=== PATIENT | female | born 1945 | race Caucasian/White ===

== ENCOUNTER 2024-03-15 07:34 | Outpatient (CLI) | payer MEDICARE, BC, SELFPAY ==
--- OUTSIDE RECORDS SUMMARY | 2024-03-15 07:39 | XMS_ITS | Referral Summary ---
Author Organization [facility] Address [address] [place] [address] Care Team Providers Care Viner Operator Name Role Phone Unavailable Primary Care Provider Unavailabl e Source Comments Patient records contain information from all sites at [facility]. For routine questions regarding patient records, call [phone] during business hours, M-F 8:00 AM - 5:00 PM Central Time. Record requests for emergency care only can be directed to [phone] at any time.[facility] Allergies Active Allergy Reactions Criticality Noted Date Comments Fernando Inhibitors Cough,Other (see comments) Low 12/26/2006 Head aches - severe Aspirin Anaphylaxis,Edema, suggestive of allergic reaction, i.e., lip, tongue, or throat swelling High 12/23/1976 Facial edema Citalopram Other (see comments) Low 03/20/2011 Sensation of something stuck in throat Immunizations Name Administration Dates Next Due DTaP (Infanrix, Tripedia) 11/11/2008 H1N1 All Forms 09/19/2009 HZV (ZOSTAVAX) 11/11/2008 Influenza, Unspecified 10/12/2004 Social History Tobacco Use Types Packs/Day Years Used Date Smoking Tobacco: Never Assessed Nutrition Answer Date Recorded Nutrition: EVOO Fat Source Unknown 06/30 Nutrition: Servings of Fruits/Vegetables per Day Not on file 06/30/2023 Dental Answer Date Recorded Dental: Regular Dentist Unknown 06/30/20 Sex and Gender Information Value Date Recorded Sex Assigned at Not on file Gender Identity Not on file Sexual Orientation Not on file Plan of Treatment Not on file Medical Devices Implanted Type Area Park Interpreter Device Identifier Shelf Expiration Date Model / Serial / Lot Imaging Marker- [id number] Implanted:Qty : 1 on 06/24/2023 Imaging Marker Right: Breast Description:Shape: Wing
--- OUTSIDE RECORDS SUMMARY | 2024-03-15 07:39 | XMS_ITS | Clinical Summary ---
Author Organization [facility] Address [address] [place] [address] Care Team Providers Care Testing Coordinator Name Role Phone Unavailable Primary Care Provider Unavailabl e Source Comments Patient records contain information from all sites at [facility]. For routine questions regarding patient records, call [phone] during business hours, M-F 8:00 AM - 5:00 PM Central Time. Record requests for emergency care only can be directed to [phone] at any time.[facility] Allergies Active Allergy Reactions Criticality Noted Date [...] Orientation Not on file Plan of Treatment Health Maintenance Due Date Last Done Comments Hepatitis C Screening 1945 Depression Screening (Annual PHQ-2) 10/06/2023 Fall Risk Screen (Annual) 10/06/2023 COVID-19 Vaccine (6 - 2022-2 4 season) 2023 07/04/2023, 06/19/2022, 07/29/2021, Additional history exists DTaP,Tdap,and Td Vaccines (3 - Tdap) 09/08/2029 09/08/2019, 11/11/2008, 11/11/2008 Pneumococcal vaccine (65+ years) Completed 10/04/20 14, 09/30/2012 Zoster Vaccines Completed 11/26/2018, 01/2018, 08/24/2018, Additional history exists Influenza Vaccine Completed 07/04/2023, , 06/06/2021, Additional history exists Medical Devices Implanted Type Area Material Man Device Identifier Shelf Expiration Date Model / Serial / Lot Imaging Marker- [id number] Implanted:Qty : 1 on 06/24/2023 Imaging Marker Right: Breast Description:Shape: Wing
--- OUTSIDE RECORDS SUMMARY | 2024-03-15 07:39 | XMS_ITS | Clinical Summary ---
Author Organization [facility] Address [place], [place] [address] Care Team Providers Care Crib Clerk Name Role Phone Hayley Maxwell MD Primary Care Provider [phone] Elida Tompkins MD Unavailable [phone] Allergies Active Allergy Reactions Criticality Noted Date Comments Fernando Inhibitors Cough Low 12/26/2006 Aspirin Angioedema High Citalopram Other - Describe In Comment Field Low 03/20/2011 Sensation of something stuck in throat Medications Medication Sig Dispensed Refills Start Date End Date Status cholecalciferol (VITAMIN D3) 2,000 unit capsule Take 2,000 units by mouth once daily. Active POTASSIUM-99 ORAL Take 1 Tablet by mouth once daily. Active valsartan (DIOVAN) 160 mg tabletIndications: Essential hypertension Take 1 Tablet (160 mg) by mouth once daily. 90 Tablet 3 09/10/2023 Active predniSONE (DELTASONE) 5 mg tabletIndications: PMR (polymyalgia rheumatica) (HC) Take 1 Tablet (5 mg) by mouth once daily with a meal. 0 09/10/2023 Active LORazepam (ATIVAN) 0.5 mg tabIndications:Anx iety Take 1 Tablet (0.5 mg) by mouth every 6 hours if needed for Anxiety. 60 Tablet 09/22/2023 Active medication order composer Magnesium Glycinate, Potassium 99 oral, Vitamin 2000IU-daily, Probiotic, Sporebiotic 02/12/2024 Active polyethylene glycol-electrolyte (GOLYTELY) 236-22.74-6.74 -5.86 gram suspensionIndicati ons:Encounter for screening colonoscopy Drink 2 liters the day before colonoscopy and 2 liters 6 hours before colonoscopy appointment 4000 mL 03/05/2024 Active medication order composerIndication s:Chronic joint pain Low Dose Naltrexone compounded to 3mg: Take 0.5 tablet by mouth daily at bedtime and increase dose as instructed 60 Tablet 09/16/2023 4 Discontinued (Other - add note to specify (E-cancel not sent)) medication order composerIndication s:Chronic joint pain Low Dose Naltrexone compounded to 4.5 mg tablets: Take 1 tablet by mouth daily at bedtime 90 Tablet 1 09/17/2023 4 Discontinued (Other - add note to specify (E-cancel not sent)) rifAXIMin (Xifaxan) 550 mg tabletIndications: Small intestinal bacterial overgrowth (SIBO) Take 1 tablet by mouth three times daily for 14 days 42 Tablet 02/12/2024 4 Discontinued (*Patient states no longer taking) Active Problems Problem Noted Date Diagnosed Date Prediabetes 03/11/2024 Epigastric pain 07/21/2023 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 C-reactive protein 20.7. ACP (advance care planning) 06/05/2020 Overview: Health Care Directive scanned to medical record. See document dated 03/31/2020. Anxiety 02/22/2014 Overview: Working with counselor Osteopenia 11/15/2013 Overview: 02/2019: DXA scan-lowest T-score -1.8, FRAX score low Hypertension Postmenopausal atrophic vaginitis Hyperlipidemia Overview: high HDL HH (hiatus hernia) Resolved Problems Problem Noted Date Diagnosed Date Resolved Date Acute appendicitis 05/17/2023 3 Acute atopic conjunctivitis 12/28/2006 08/22/2015 Displacement of lumbar inter vertebral disc without myelopathy 12/26/2006 Reflux esophagitis 7 Esophageal reflux 08/22/2015 Overview: Upper GI endoscopy negative 12/17/07 Neg H.Pylori Encounters Date Type Department Care Team Description 03/11/2024 10:00 AM CDT Preop Visit [address] [phone] Angel Guzman MD Pre-Op Exam (DOS 03/15/24 colonoscopy) 03/11/2024 Travel 03/04/2024 12:20 PM CDT Orders Only [address] [address] Lab, [facility] 03/04/2024 Travel 02/23/[address] [address] Radha Arevalo NP Prior Authorization (rifAXIMin (Xifaxan) 550 mg tablet APPEAL) 02/23/2024 Telephone [facility] [address] [place] [address] Luis Antonio Hunt MD PHARMACY - [facility]; Questions (returning a call ) 02/23/[address] [address] Hayley Maxwell MD Referral (COLONOSCOPY DIAGNOSTIC [[id number]]) 02/13/2024 Medical Messaging [address] [address] Radha Arevalo NP QUESTION 02/12/2024 10:00 AM CDT Telemedicine [address] [address] Radha Arevalo NP Follow Up; Telehealth (Digestive issues) 02/11/2024 Travel 01/01/2024 2:15 PM CDT Telemedicine [address] [place] [address] Radha Arevalo, BEATRIZ Telehealth; Follow Up 01/01/2024 Travel from Last 3 Months Immunizations Name Administration Dates Next Due COVID-19 vaccine (Moderna 100mcg/0.5mL) PF, MDV 07/29/2021,01/03/2021,12/06/2020 DTaP 11/11/2008 Influenza A (H1N1), Inactivated 09/19/2009 Influenza Virus, Unspecified 06/06/2020,07/19/20 15,10/12/2004 Influenza, High-dose Inactivated 021,06/15/2019,06/05/2018,2016,07/24/2016,07/23/2016 Influenza, High-dose Quadriv alent Inactivated 07/04/2023 Influenza, IIV3 (Age 6-35 mos) 06/23/2020 Influenza, IIV3 (Age >=3 years) 07/01/20 11,07/06/2010,07/20/2007,2005,10/12/2004 Influenza, IIV4 07/19/2015,07/12/2013 Influenza, Inactivated AIIV4 (Age 65+ Years) Preserv Free 06/19/2022 Influenza, Inactivated IIV3 (Age 65+ Years) Preserv Free 06/12/2017 Pneumococcal Poly,23-Valent (Pneumovax) 09/30/2012 Pneumococcal conj 13-Valent (Prevnar 13) 10/04/2014 Td (Age >=7 Years) 09/08/2019 Tdap 11/11/2008 Zoster (Shingrix-RZV, recombinant) 11/26/2018,,08/24/2018 Zoster (Zostavax-ZVL, live) 11/11/2008 Family History Medical History Relation Name Comments Cancer-breast Brother Alcoholism Father COPD Father Alcoholism Mother Rheum arthritis Mother Relation Name Status Comments Brother Alive Father (Age 73) Mother (Age 58) Social History Tobacco Use Types Packs/Day Years Used Date Smoking Tobacco: Never Smokeless Tobacco: Never Tobacco Cessation:Counseling Given: Yes Alcohol Use Standard Drinks/Week Comments No 0 (1 standard drink = 0.6 oz pur e alcohol) PHQ-2 Answer Date Recorded PHQ-2 TOTAL SCORE 0 09/10/2023 Social Connections Answer Date Recorded Frequency of Communication with Friends and Fami ly 0 03/21/2023 Financial Resource Strain Answer Date R ecorded Difficulty of Paying Living Expenses 3 03/21/2023 Difficulty of Paying Living Expenses Not on file 03/21/2023 Food Insecurity Answer Date Recorded Worried About Running Out of Food in the Last Ye ar 1 03/21/2023 Transportation Needs Answer Date Record ed Lack of Transportation (Medical) 1 03/21/2023 Housing Stability Answer Date Recorded Unable to Pay for Housing in the Last Year 1 03/21/2023 Sex and Gender Information Value Date Recorded Sex Assigned at Not on file Gender Identity Not on file Sexual Orientation Not on file Obstetrics History Para Term AB IAB SAB Ectopic Multiple Livin g Live Births 3 3 2 Date Outcome GA Total Labor Labor/2nd/3rd Weight Sex Type Anes PTL Cyndi A1 A5 Name Clin Para Para Para Last Filed Vital Signs Vital Sign Reading Time Taken Comments Blood Pressure 132/90 03/11/2024 10:08 AM CDT Pulse 75 03/11/2024 10:08 AM CDT Temperature 36.3 ??C (97.4 ??F) 08/07/2023 10:59 AM C DT Respiratory Rate 16 08/07/2023 10:59 AM CDT Oxygen Saturation 96% 03/11/2024 10:08 AM CDT Inhaled Oxygen Concentration - - Weight 82.1 kg (181 lb) 03/11/2024 10:08 AM CDT Height 160 cm (5' 3) 09/10/2023 11:36 AM TUMOR REGISTRAR Body Mass Index 32.06 09/10/2023 11:36 AM TUMOR REGISTRAR Plan of Treatment Upcoming Encounters Date Type Department Care Team (Late st Contact Info) Description 03/15/2024 7:45 AM CDT Office Visit [facility] at [facility] [address] [place] [phone] Luis Antonio Hunt MD [address] [place] [address] 03/23/2024 8:30 AM CDT Telemedicine [facility] and [address] [phone] Radha Arevalo, SKI PATROLLER [address] [place] [address] 03/24/2024 8:00 AM CDT Appointment [facility] [address] [place] [address] 03/24/2024 11:30 AM CDT Office Visit [address] [phone] Ciara Hutchins, DO [address] [place] [address] 04/07/2024 8:00 AM CDT Office Visit [address] [phone] Hayley Maxwell MD [address] [place] [address] 04/21/2024 8:10 AM CDT Office Visit [address] [phone] Ciara Hutchins, DO [address] [place] [address] 05/11/2024 3:00 PM CDT Telemedicine [facility] and [facility] [address] [place] [address] Radha Arevalo, BEATRIZ [address] [place] [address] 06/28/2024 10:40 AM CDT Appointment [facility] [address] [place] [address] Health Maintenance Due Date Last Done Comments COVID-19 vaccine series (2022-24 season) 2023 07/04/2023, 06/19/2022, 07/29/2021, Additional history exists Influenza for age 65+ 06/06/2024 07/04/2023 , 06/19/2022, 06/06/2021, Additional history exists BMI (ht and wt on same day) for age 18+ 09/10/2024 09/10/2023, 08/07/2023, 07/04/2023, Additional history exists Depression screening for age 12+ 09/10/2024 09/10/2023, 04/01/2023, 03/07/2023, Additional history exists Medicare Wellness for age 65+ 09/10/2024, 09/04/2022, 09/08/2019, Additional history exists Tetanus booster 09/08/2029 09/08/2019, 11/11/2008 Tdap Completed 11/11/2008 Pneumococcal series for age 65+ Completed 4, 09/30/2012 Zoster (shingles) series for age 50+ Completed 11/26/2018, 09/08/2018, 08/24/2018, Additional history exists DEXA/DXA scan for age 65+ Completed 2018, 03/26/2011, 07/01/2007 Hepatitis C screening for ag e 18-79 Completed 09/10/2019 Procedures Procedure Name Priority Date/Time Associated Diagnosis Comments HEMOGLOBIN A1C SCREENING Add On 03/11/2024 10:31 AM CDT Elevated glucose CBC WITH AUTO DIFFERENTIAL Routine 03/11/2024 10:31 AM CDT Hypertension LIPID PANEL W REFLEX MEASURED LDL Routine 03/11/2024 10:31 AM CDT Hyperlipidemia, unspecified hyperlipidemia type LIPASE Routine 03/11/2024 10:31 AM CDT Hypertension COMP METABOLIC PANEL Routine 03/11/2024 10:31 AM CDT Hypertension CBC WITH AUTO DIFFERENTIAL Routine 03/11/2024 10:31 AM CDT Hypertension STOOL PATHOGEN MULTIPLEX PCR PANEL Routine 03/04/2024 10:38 AM CDT Chronic diarrhea ANTI HCV Routine 09/10/2019 7:51 AM TUMOR REGISTRAR Need for hepatitis C screening test XR DXA BONE DENSITY 2 SITES AXIAL Routine 02/08/2019 1:45 PM CDT Osteopenia, unspecified location from Last 3 Months or Most Recently Relevant to Health Maintenance Results * (ABNORMAL) CBC WITH AUTO DIFFERENTIAL (03/11/2024 10:31 AM CDT) Pathologist [facility] WHITE BLOOD COUNT 9.2 4.5 - 11.0 thou/cu mm 03/11/2024 11:00 AM [facility] RED BLOOD COUNT 5.33(H) 4.00 - 5.20 mil/cu mm 03/11/2024 11:00 AM [facility] HEMOGLOBIN 14.8 12.0 - 16.0 g/dL 03/11/2024 11:00 AM [facility] HEMATOCRIT 46.1 33.0 - 51.0 % 03/11/2024 11:00 AM [facility] MCV 87 80 - 100 fL 03/11/2024 11:00 AM [facility] MCH 27.8 26.0 - 34.0 pg 03/11/2024 11:00 AM [facility] MCHC 32.1 32.0 - 36.0 g/dL 03/11/2024 11:00 AM [facility] RDW 15.5 11.5 - 15.5 % 03/11/2024 11:00 AM [facility] PLATELET COUNT 328 140 - 440 thou/cu mm 03/11/2024 11:00 AM [facility] MPV 10.1 6.5 - 11.0 fL 03/11/2024 11:00 AM [facility] % NEUT 70.0 % 03/11/2024 11:00 AM [facility] % LYMPH 21.3 % 03/11/2024 11:00 AM [facility] % MONO 7.6 % 03/11/2024 11:00 AM CDT [facility] % EOS 0.8 % 03/11/2024 11:00 AM CDT [facility] % BASO 0.3 % 03/11/2024 11:00 AM CDT [facility] ABSOLUTE NEUTROPHILS 6.5 1.7 - 7.0 thou/cu mm 03/11/2024 11:00 AM CDT [facility] ABSOLUTE LYMPHOCYTES 2.0 0.9 - 2.9 thou/cu mm 03/11/2024 11:00 AM CDT [facility] ABSOLUTE MONOCYTES 0.7 <0.9 thou/cu mm 03/11/2024 11:00 AM CDT [facility] ABSOLUTE EOSINOPHILS 0.1 <0.5 thou/cu mm 03/11/2024 11:00 AM CDT [facility] ABSOLUTE BASOPHILS 0.0 <0.3 thou/cu mm 03/11/2024 11:00 AM CDT [facility] Blood BLOOD SPECIMEN / Unknown Venipuncture / Unknown 03/11/2024 10:31 AM CDT 03/11/2024 10:31 AM CDT Angel Guzman MD HEMATOLOGY Performing Organization Address City/State/[facility] Co de Phone Number [facility] [address] [place] [address] * HEMOGLOBIN A1C SCREENING (03/11/2024 10:31 AM CDT) HEMOGLOBIN A1C SCREENING 6.0 <=6.4 % 03/11/2024 11:35 AM CDT [facility] Blood BLOOD SPECIMEN / Unknown Venipuncture / Unknown 03/11/2024 10:31 AM CDT 03/11/2024 10:31 AM CDT Narrative [facility] - 03/11/2024 11:35 AM CDT ? (<5.7%) ?Normal ? (5.7% to 6.4%) ? Indicates prediabetes ? (>=6.5%) ? Confirms diabetes Falsely low levels may be seen with: Recent Transfusion, Recent Significant Blood Loss, Hemolytic Diseases, or Falsely elevated levels may be seen with: Untreated Anemias, Splenectomy Angel Guzman MD CHEMISTRY [facility] [address] [place] [address] * (ABNORMAL) LIPID PANEL W REFLEX MEASURED LDL (03/11/2024 10:31 AM CDT) CHOLESTEROL,TOTAL 280(H) 100 - 199 mg/dL 03/11/2024 11:21 AM [facility] Comment: Cholesterol, Total Reference Ranges Desirable <200 mg/dL Borderline 200-239 mg/dL High >=240 mg/dL TRIGLYCERIDES 140 <150 mg/dL 03/11/2024 11:21 AM [facility] HDL CHOLESTEROL 75 >40 mg/dL 11:21 AM [facility] NON-HDL CHOLESTEROL 205(H) <145 mg/dl 03/11/2024 11:21 AM [facility] CHOL/HDL RATIO 3.73 <4.50 03/11/2024 11:21 AM [facility] LDL CHOLESTEROL 177(H) <=130 mg/dL 03/11/2024 11:21 AM [facility] VLDL CHOLESTEROL 28 <=30 mg/dL 03/11/2024 11:21 AM [facility] PROVIDER ORDERED STATUS RANDOM 03/11/2024 11:21 AM [facility] Blood BLOOD SPECIMEN / Unknown Venipuncture / Unknown 03/11/2024 10:31 AM CDT 03/11/2024 10:31 AM T Angel Guzman MD CHEMISTRY [facility] [address] [place] [address] * (ABNORMAL) LIPASE (03/11/2024 10:31 AM CDT) LIPASE 67.6(H) 13.0 - 60.0 IU/L 03/11/2024 11:21 AM [facility] Blood BLOOD SPECIMEN / Unknown Venipuncture / Unknown 03/11/2024 10:31 AM CDT 03/11/2024 10:31 AM CDT Angel Guzman MD CHEMISTRY [facility] [address] [place] [address] * (ABNORMAL) COMP METABOLIC PANEL (03/11/2024 10:31 AM CDT) SODIUM 142 136 - 145 mmol/L 03/11/2024 11:21 AM [facility] POTASSIUM 4.2 3.5 - 5.1 mmol/L 03/11/2024 11:21 AM [facility] CHLORIDE 104 98 - 107 mmol/L 03/11/2024 11:21 AM [facility] CO2,TOTAL 27 22 - 29 mmol/L 03/11/2024 11:21 AM [facility] ANION GAP 11 5 - 18 03/11/2024 11:21 AM [facility] GLUCOSE 112(H) 70 - 99 mg/dL 03/11/2024 11:21 AM [facility] CALCIUM 10.0 8.8 - 10.2 mg/dL 03/11/2024 11:21 AM [facility] BUN 17 8 - 23 mg/dL 03/11/2024 11:21 AM [facility] CREATININE 0.78 0.50 - 0.90 mg/dL 03/11/2024 11:21 AM [facility] BUN/CREAT RATIO 22(H) 10 - 20 11:21 AM [facility] eGFR 78(L) >90 mL/min/1.7 3m2 03/11/2024 11:21 AM T [facility] Comment:As of 2021, eG FR is calculated by the CKD-EPI creatinine equation without race adjustment. ??eGFR can be influenced by muscle mass, exercise, and diet. ??The reported eGFR is an estimation only and is only applicable if the renal function is stable. ALBUMIN 4.6 4.0 - 4.9 g/dL 03/11/2024 11:21 AM T [facility] PROTEIN,TOTAL 7.4 6.0 - 8.0 g/dL 03/11/2024 11:21 AM T [facility] BILIRUBIN,TOTAL 0.9 0.0 - 1.2 mg/dL 03/11/2024 11:21 AM T [facility] ALK PHOSPHATASE 75 35 - 104 IU/L 03/11/2024 11:21 AM [facility] ALT (SGPT) 22 10 - 35 IU/L 03/11/2024 11:21 AM T [facility] AST (SGOT) 29 10 - 35 IU/L 03/11/2024 11:21 AM [facility] Blood BLOOD SPECIMEN / Unknown Venipuncture / Unknown 03/11/2024 10:31 AM CDT 03/11/2024 10:31 AM CDT Angel Guzman MD CHEMISTRY [facility] [address] [place] [address] * STOOL PATHOGEN MULTIPLEX PCR PANEL (03/04/2024 10:38 AM CDT) Campylobacter NOT Detected NOT Detected 03/05/2024 10:55 AM CDT [facility] Salmonella NOT Detected NOT Detected 03/05/2024 10:55 AM CDT [facility] Shigella NOT Detected NOT Detected 03/05/2024 10:55 AM CDT [facility] Vibrio NOT Detected NOT Detected 03/05/2024 10:55 AM CDT [facility] Yersinia Enterocolitica NOT Detected NOT Detected 03/05/2024 10:55 AM CDT [facility] Shiga Toxin 1 NOT Detected NOT Detected 03/05/2024 10:55 AM CDT [facility] Shiga Toxin 2 NOT Detected NOT Detected 03/05/2024 10:55 AM CDT [facility] Norovirus NOT Detected NOT Detected 03/05/2024 10:55 AM CDT [facility] Rotavirus NOT Detected NOT Detected 03/05/2024 10:55 AM CDT [facility] Stool STOOL SPECIMEN / Unknown Non-Blood / Unknown 03/04/2024 10:38 AM CDT 03/04/2024 11:45 AM CDT Narrative [facility] - 03/05/2024 10:55 AM CDT This test is a Culture Independent Diagnostic Test (CIDT) therefore isolates are not available for susceptibility testing. ??Antibiotic treatment is often contraindicated and may be detrimental in cases of enteric infections, thus routine susceptibility testing is not recommended. Radha Arevalo NP MICROBIOLOGY [facility] [address] [place] [address], [place] * ANTI HCV (09/10/2019 7:51 AM TUMOR REGISTRAR) HEPATITIS C ANTIBODY Non-React taylor Non-React taylor 09/10/2019 5:38 PM TUMOR REGISTRAR [facility] Comment:Antibodies to HCV no t detected; does not exclude the possibility of exposure to HCV. Blood BLOOD SPECIMEN / Unknown Venipuncture / Unknown 09/10/2019 7:51 AM TUMOR REGISTRAR 09/10/2019 7:53 AM TUMOR REGISTRAR Hayley Maxwell MD SEND OUTS [facility] [address] [place] [address], [place] * (ABNORMAL) XR DXA BONE DENSITY 2 SITES AXIAL (02/08/2019 1:45 PM CDT) Anatomical Region Laterality Modality Spine, HIPS, HIPL, HIPR Bone Den sitometry Narrative 02/10/2019 3:31 PM CDT Please see scanned document for results of this study. 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 Healthcare Directive 03/31/2020 020 Treatment Guidelines 06/17/2014 5:23 PM GA D-7 ANXIETY SCALE * Full Code (Latest Code Status on File) Date Activated Date Inactivated Comments 07/28/2023 1:40 PM 07/28/2023 8:12 PM Question Answer Comments Code Status Discussion: Reviewed Preferences * Full Code Date Activated Date Inactivated Comments 03/11/2023 1:45 PM 03/11/2023 5:41 PM Question Answer Comments Code Status Discussion: Discussed Care Teams Crib Clerk Relationship Specialty Start Date End Date Hayley Maxwell MD [address] [place] [address] PCP - General 01/09/05 Elida Tompkins MD [facility] [address] [place] [address]. [address] [place] [id number] Dermatology 08/07/16
--- OUTSIDE RECORDS SUMMARY | 2024-03-15 07:39 | XMS_ITS ---
Author Organization [facility] Address [address] [place] [address] Care Team Providers Care Manufacturer Name Role Phone Unavailable Unavailable Unavailable Surgery Details Not on file Complications Check Surgery Details section. Procedure Estimated Blood Loss Check Surgery Details section. Procedure Findings Check Surgery Details section. Procedure Specimens Taken Check Surgery Details section.
--- OUTSIDE RECORDS SUMMARY | 2024-03-15 07:39 | XMS_ITS | Clinical Summary ---
Author Organization [facility], [facility] Address [address] [address] Care Team Providers Care Lens Edge Grinder Machine Name Role Phone Pcp, Pt Declines MD Primary Care Provider [phone] Source Comments You are receiving this document as you are listed as the primary care provider,follow-up provider, or the patient has been referred to you for consultation.This is in compliance with the Medicare and[facility] EHR Incentive Program,which states Providers who transition their patient to another setting of careor provider of care or refers their patient to another provider of care shouldprovide summary care record for each transition of care or referral. Circle Allergies Active Allergy Reactions Criticality Noted Date Comments Aspirin Anaphylaxis High 05/04/2020 Medications Medication Sig Dispensed Refills Start Date End Date Status irbesartan (AVAPRO) 150 MG tablet Take 150 mg by mouth daily. 04/13/2020 Active LORazepam (ATIVAN) 0.5 MG tablet Take 0.5 mg by mouth every 6 hours as needed. 04/13/2020 Active Social History Tobacco Use Types Packs/Day Years Used Date Smoking Tobacco: Never Assessed Sex and Gender Information Value Date Recorded Sex Assigned at Not on file Gender Identity Not on file Sexual Orientation Not on file Last Filed Vital Signs Vital Sign Reading Time Taken Comments Blood Pressure - - Pulse - - Temperature - - Respiratory Rate - - Oxygen Saturation - - Inhaled Oxygen Concentration - - Weight 70.3 kg (155 lb) 05/04/2020 3:53 PM CDT p t reported Height 160 cm (5' 3) 05/04/2020 3:53 PM CDT pt reported Body Mass Index 27.46 05/04/2020 3:53 PM CDT Plan of Treatment Health Maintenance Due Date Last Done Comments Hep C Screening (Preventive Services) 1945 Medicare Annual Wellness Visit 1945 Dexa 12/31/2011 COVID-19 Vaccine ( season) 2023 01/03/2021, 12/06/2020 Influenza (Season Ended) 2024 020, 06/06/2020, 06/15/2019, Additional history exists DTaP/Tdap/Td (3 - Tdap) 09/08/2029 09/08/2019, 11/11 Pneumococcal 65+ Yrs Completed 10/04/2014, 09/30/20 12 Zoster/Shingles Completed 11/26/2018, 01/2018, 08/17/2018, Additional history exists HepA Aged Out No longer eligi ble based on patient's age to complete this topic HepB Aged Out No longer eligi ble based on patient's age to complete this topic Hib Aged Out No longer eligi ble based on patient's age to complete this topic IPV (Polio) Aged Out No longer eligi ble based on patient's age to complete this topic MCV4 Aged Out No longer eligi ble based on patient's age to complete this topic Care Teams Lens Edge Grinder Machine Relationship Specialty Start Date End Date Pcp, Pt MD [place], [place] [id number] PCP - General 05/04/20
--- NOTE | 2024-03-15 09:30 | P.ANES_ITS ---
Anesthesia Charges Start Date/Time Anesthesia Start Date: 03/15/24 Anesthesia Start Time: 08:57 Stop Date/Time Anesthesia Stop Date: 03/15/24 Anesthesia Stop Time: 09:27 Summary Extremes of Age - Over 70 or under 1: SHORE HAND DREDGE OR BARGE
--- NOTE | 2024-03-15 10:04 | W.ANESCHARGE ---
Anesthesia Charges Start Date/Time Anesthesia Start Date: 03/15/24 Anesthesia Start Time: 08:57 Stop Date/Time Anesthesia Stop Date: 03/15/24 Anesthesia Stop Time: 09:27 Summary Extremes of Age - Over 70 or under 1: MDA
== END 2024-03-15 07:35 | disposition home or self-care (01) ==
PROVIDERS: PCP Internal Medicine; Visit Provider Internal Medicine Gastroenterology
DX: Z12.11 Encounter for screening for malignant neoplasm of colon (principal); Q43.8 Other specified congenital malformations of intestine
CPT/HCPCS: 00811; 45380; 88305; 99100; J2704

== ENCOUNTER 2025-08-25 20:21 | Emergency (ER) | payer MEDICARE, BC, SELFPAY ==
--- OUTSIDE RECORDS SUMMARY | 2024-03-03 05:21 | XMS_ITS | Continuity of Care Document ---
Author Organization [facility] Address [address] [address] [place] [address] Phone Care Team Providers Care Expedition Supervisor Name Role Phone Kris Hogan MD Unavailable Unavailabl e Allergies, Adverse Reactions, Alerts Substance Reaction Status Criticality SANDRA Inhibitors Active No Informatio n aspirin Angioedema Active No Information WARNIN allergy(ies) could not be collected because the type is not supported. Please contact the source practice for further details. Medications Medication Instructions Dosage Effective Dates (start - stop) Status Comments potassium chloride ER 10 mEq tablet,extended release take 1 tablet by oral route every day with food 10 MEQ - Active pantoprazole 40 mg tablet,delayed release take 1 tablet by oral route every day take 1 tab 30 mins prior to breakfast and dinner 40 MG - Active oxymetazoline 0.05 % nasal spray spray 2 spray by intranasal route 2 times every day in each nostril in the morning and evening as needed 2.00 spray - Active prednisone 1 mg tablet take 3 tablet by oral route every day 3 MG - Active valsartan 160 mg tablet take 1 tablet by oral route every day 160 MG - Active promethazine 25 mg tablet take 0.5 tablet by oral route every 6 hours as needed - Active Compazine 10 mg tablet take 1 tablet by oral route 4 times every day as needed 10 MG - Active ondansetron [address] 1 tablet by translingual route every [address] on top of the tongue where it will dissolve, then swallow as needed 8 MG - Active LIQUID CALCIUM-VIT D (unknown strength) Not Available - Active buspirone 5 mg tablet take 1 tablet by oral route two times a day - Active isosorbide mononitrate ER 30 mg tablet,extended release 24 hr take 0.5 tablet by oral route every day in the morning 15 MG - Active Potassium (unknown strength) Not Available - Active lorazepam 0.5 mg tablet take 1 tablet by oral route every 6 hours as needed as needed 0.5 MG - Active CULTURELLE (unknown strength) take 1 tablet by oral route every day Not Available - Active Procedures Procedure Date Offic/outpt E&m [facility] Advance Directives Directive Yes / No Effective Date File Name No Information Encounters Encounter Description Practice Location Reason(s) For Visit Diagnoses Date Provider Providers Copied on Encounter [facility], [address] [address], [place], [id number], [place] tel:[phone] [facility] [address] No Information 4 Yamil Ponce. [address] [place] [address], [id number], [place]. tel:[phone] Offic/outpt E&m [facility], [address] [address], [facility] [place], [id number], [place] tel:[phone] [facility] [address] GI Symptoms or Concerns (chief complaint) AnxietyEpigastric abdominal pain 3 Poonam Cortés. [address] [facility] [address], [place], [id number], [place]. tel:[phone] Referring Provider: Referral Self, USE FOR SELF REFERRALS. [facility], [address] [address], [place], [id number], [place] tel:[phone] No Information 3 No Information Referring Provider: Hayley Maxwell MD, [address], [address]. tel:[phone] Family History Family Member Type Diagnosis Age At Onset Mother Problem (finding) Alcoholism Brother Problem (finding) Alcoholism Father Problem (finding) Alcoholism Immunizations Vaccine Date Status Comments influenza, high-dose seasona l, quadrivalent, 0.7mL dose, preservative free administered Note: [facility] bi-direct ional interface ; Source: Other Registry SARS-COV-2 (COVID-19) vaccin e, mRNA, spike protein, LNP, preservative free, segun-sucrose, 30 mcg/0.3 mL dose administered Note: [facility] bi-direct ional interface ; Source: Other Registry SARS-COV-2 (COVID-19) vaccin e, mRNA, spike protein, LNP, bivalent, preservative free, 30 mcg/0.3 mL dose, segun-sucrose formulation administered Note: [facility] bi-direct ional interface ; Source: Other Registry influenza, seasonal vaccine, quadrivalent, adjuvanted, 0.5mL dose, preservative free administered Note: [facility] bi-di rectional interface ; Source: Other Registry SARS-COV-2 (COVID-19) vaccin e, mRNA, spike protein, LNP, bivalent booster, preservative free, 30 mcg/0.3 mL dose, segun-sucrose formulation administered Note: [facility] bi-d irectional interface ; Source: Other Registry SARS-COV-2 (COVID-19) vaccin e, mRNA, spike protein, LNP, preservative free, 100 mcg/0.5mL dose or 50 mcg/0.25mL dose administered Note: [facility] bi -directional interface ; Source: Other Registry influenza, high dose seasona l, preservative-free administered Note: [facility] bi-direct ional interface ; Source: Other Registry SARS-COV-2 (COVID-19) vaccin e, mRNA, spike protein, LNP, preservative free, 100 mcg/0.5mL dose or 50 mcg/0.25mL dose administered Note: [facility] bi -directional interface ; Source: Other Registry SARS-COV-2 (COVID-19) vaccin e, mRNA, spike protein, LNP, preservative free, 100 mcg/0.5mL dose or 50 mcg/0.25mL dose administered Note: [facility] bi -directional interface ; Source: Other Registry Influenza, seasonal, injecta ble, preservative free administered Note: [facility] bi-direct ional interface ; Source: Other Registry influenza virus vaccine, unspecified formulation administered Note: [facility] bi-di rectional interface ; Source: Other Registry influenza, high dose seasona l, preservative-free administered Note: [facility] bi-direct ional interface ; Source: Other Registry zoster vaccine recombinant administered N ote: [facility] bi-directional interface ; Source: Other Registry zoster vaccine recombinant administered N ote: [facility] bi-directional interface ; Source: Other Registry zoster vaccine recombinant administered N ote: [facility] bi-directional interface ; Source: Other Registry influenza, high dose seasona l, preservative-free administered Note: [facility] bi-direct ional interface ; Source: Other Registry influenza, high dose seasona l, preservative-free administered Note: [facility] bi-direct ional interface ; Source: Other Registry influenza, high dose seasona l, preservative-free administered Note: [facility] bi-direct ional interface ; Source: Other Registry Influenza administered Note: [facility] bi-d irectional interface ; Source: Other Registry Prevnar 13 administered Note: [facility] bi-d irectional interface ; Source: Other Registry Afluria Qd 1754-8840 administered Note: [facility] bi-directional interface ; Source: Other Registry Pneumovax 23 administered Note: [facility] bi-d irectional interface ; Source: Other Registry Influenza, seasonal, injectable administe red Note: [facility] bi- directional interface ; Source: Other Registry Influenza, seasonal, injectable administe red Note: [facility] bi- directional interface ; Source: Other Registry Novel [id number], all formulations administered Note: [facility] bi-direct ional interface ; Source: Other Registry tetanus toxoid, reduced diphtheria toxoid, and acellular pertussis vaccine, adsorbed administered Note: [facility] b i-directional interface ; Source: Other Registry zoster vaccine, live administered Note: [facility] bi-directional interface ; Source: Other Registry Influenza, seasonal, injectable administe red Note: [facility] bi- directional interface ; Source: Other Registry Payers Payer name Insurance type Covered libertarian ID Authoriza tion(s) No Information Social History Type Description Quantity Date Captured Comments Sex Female Smoking Status No Information Chief Complaint And Reason For Visit No Information Reason For Referral Reason For Referral No Information History Of Present Illness Encounter Date Complaint History Of Prese nt Illness GI Symptoms or Concerns 77-year- old female with significant for cholecystectomy many years ago, generalizedanxiety disorder currently not under control, her polymyalgia rheumatica, who has been having since January of worsening anxiety with associated epigastric abdominal pain and nausea with no signs of alarm for which she has had an extensive workup including blood work CT scan at [place] that per her report was completely normal, an upper endoscopy March 11 by a surgeon that she found gastric erythema, hiatal hernia and normal esophageal gastric and duodenal biopsies who was sent for further evaluation/treatment by Dr. Mawxell her primary care provider. Patient states that she has had significant ascites throughout her entire life she says that when she gets really anxious or something happens quickly she will immediately get diarrhea have significant nausea sometimes even vomit. This has been like this entire life. Since January her anxiety has been becoming more significant than difficult to control and this has led her to have more nausea and more abdominal pain located in the epigastric area. She winterws in [place] and in October she ended up having significant abdominal pain with nausea and high anxiety levels he is led her to the emergency department. At that time per her report she had a CT scan which did not show any abnormalities per her report and per notes from the primary care provider's chart as well as lab work which were within normal limits. At that time to give her Zofran which improved her nausea and since her home. She again returned to the emergency department with worsening symptoms and again had prior workup which was within normal limits. Since she is been battling significant anxiety for which he has been taking Ativan several times a day she says that as soon as she takes Ativan her nausea her epigastric abdominal pain along her GI symptoms will subside in less than 20 minutes. This will last until the Ativan resolve once the Ativan wears off their GI symptoms sometimes will return. Throughout this entire period of time she is denied any coffee-ground emesis, no melena, no hematochezia has had diarrhea on her anxiety is high and the nausea when she is very anxious as well. We have been stable and has not had any other signs of alarm. She has been taking prednisone for her polymyalgia rheumatica. As well as the pantoprazole daily. Functional Status Date Functional Assessmen t No Information Instructions Date Instruction Additional Infor mation No Information Assessments Type Assessment Date No Information Patient Care Teams Name Effective Dates (start - stop) Status Members No Information
--- OUTSIDE RECORDS SUMMARY | 2024-03-03 05:21 | XMS_ITS | Continuity of Care Document ---
Author Organization [facility] Address [address] [address] [place] [address] Phone Care Team Providers Care Local Delivery Driver Name Role Phone Kris Hogan MD Unavailable [...] Active Procedures Procedure Date Offic/outpt E&m [facility] Advance Directives Directive Yes / No Effective Date File Name No Information Encounters Encounter Description Practice Location Reason(s) For Visit Diagnoses Date Provider Providers Copied on Encounter [facility], [address] [address], [place], [id number], [place] tel:[phone] [facility] No Information 4 Yamil Ponce. [address] [place] [address], [id number], [place]. tel:[phone] Offic/outpt E&m [facility], [address] [address], [facility] [place], [id number], [place] tel:[phone] [facility] GI Symptoms or Concerns (chief complaint) AnxietyEpigastric abdominal pain 3 Poonam Cortés. [address] [facility] [address], [place], [id number], [place]. tel:[phone] Referring Provider: Referral Self, USE FOR SELF REFERRALS. [facility], [address] [address], [place], [id number], [place] tel:[phone] No Information 3 No Information Referring Provider: Hayley Maxwell MD, [address], [address]. tel:[phone] Family History Family Member Type Diagnosis Age [...] interface ; Source: Other Registry Afluria Qd 8055-2420 administered Note: [facility] bi-directional interface ; Source: Other Registry Pneumovax 23 administered Note: [facility] bi-d irectional interface ; Source: Other Registry Influenza, seasonal, injectable administe red Note: [facility] bi- directional interface ; Source: Other Registry Influenza, seasonal, injectable administe red Note: [facility] bi- directional interface ; Source: Other Registry Novel [id number], all formulations administered Note: [facility] bi-direct ional [...] workup including blood work CT scan at [place] that per her report was completely normal, an upper endoscopy March 11 by a surgeon that she found gastric erythema, hiatal hernia and normal esophageal gastric and duodenal biopsies who was sent for further evaluation/treatment by Dr. Maxwell her primary care provider. Patient states that [...] in the epigastric area. She winterws in [place] and in October she ended up having [...]
--- OUTSIDE RECORDS SUMMARY | 2025-08-25 20:23 | XMS_ITS | Clinical Summary ---
Author Organization [facility] Address [address] [address] Care Team Providers Care Provisioning Analyst Name Role Phone Pcp, Pt Declines MD Primary Care Provider [phone] Source Comments You are receiving this document as you are listed as the primary care provider,follow-up provider, or the patient has been referred to you for consultation.This is in compliance with the Medicare and[facility] EHR Incentive Program,which states Providers who transition their patient to another setting of careor provider of care or refers their patient to another provider of care shouldprovide summary care record for each transition of care or referral. [place] Allergies Active Allergy Reactions Criticality Noted Date Comments Aspirin Anaphylaxis High 05/04/2020 Medications irbesartan (AVAPRO) 150 MG tablet Take 150 mg by mouth daily. 04/13/2020 Active LORazepam (ATIVAN) 0.5 MG tablet Take 0.5 mg by mouth every 6 hours as needed. 04/13/2020 Active Social History Tobacco Use Types Packs/Day Years Used Date Smoking Tobacco: Never Assessed Comments Unknown Sex and Gender Information Value Date Recorded Sex Assigned at Not on file Legal Sex Female 3:27 PM CDT Gender Identity Not on file Sexual Orientation [...] Medicare Annual Wellness Visit 1945 Dexa 12/31/2011 RSV Vaccine (1 - 1-dose 75+ series) 2021 COVID-19 Vaccine (3 - season) 2025 01/03/2021, 12/06/2020 Influenza Vaccine (#1) 2025 0, 06/06/2020, 06/15/2019, Additional history exists DTaP/Tdap/Td Vaccine (3 - Tdap) 09/08/2029 09/08/2019, 11/11/2008 Pneumococcal Vaccine 50+ Yrs Completed 10/04/2014, 09/30/2012 Zoster/Shingles Vaccine Completed 11/26/19 19, 09/08/2018, 08/17/2018, Additional history exists HepA Vaccine Aged Out No longer eligi ble based on patient's age to complete this topic HepB Vaccine Aged Out No longer eligi ble based on patient's age to complete this topic Hib Vaccine Aged Out No longer eligi ble based on patient's age to complete this topic IPV (Polio) Vaccine Aged Out No longe r eligible based on patient's age to complete this topic MCV4 Vaccine Aged Out No longer eligi ble based on patient's age to complete this topic Meningococcal B Vaccine Aged Out No l onger eligible based on patient's age to complete this topic Insurance MEDICARE MANAGED CARE BS [facility] [place] [facility] Care Teams Provisioning Analyst Relationship Specialty Start Date End Date Pcp, Pt MD Dene[place], [place] [phone] PCP - General 05/04/20
--- OUTSIDE RECORDS SUMMARY | 2025-08-25 20:24 | XMS_ITS | Clinical Summary ---
Author Organization [email or web address] Address [address] [place] [address] Care Team Providers Care Spud Driller Name Role Phone Elida Tompkins MD Unavailable [phone] Ciara Hutchins DO Primary Care Provider Allergies Active Allergy Reactions Criticality Noted Date Comments Fernando Inhibitors Cough Low 12/26/2006 Aspirin Angioedema High Citalopram Other - Describe In Comment Field Low 03/20/2011 Sensation of something stuck in throat Medications LORazepam (ATIVAN) 0.5 mg tabIndications:An xiety Take 1 Tablet (0.5 mg) by mouth every 8 hours if needed for Anxiety. 45 Tablet 024 Active predniSONE 1 mg tabletIndications :PMR (polymyalgia rheumatica) (HC) Take 3.5 Tablets (3.5 mg) by mouth once daily with a meal. 025 Active FLUoxetine 20 mg capsuleIndication s:Anxiety,Depress ion, recurrent Take 1 Capsule (20 mg) by mouth once daily in the morning. 90 Capsule 1 025 Active busPIRone 5 mg tabletIndications :Anxiety Take 1 Tablet (5 mg) by mouth two times daily. 025 Active rosuvastatin (CRESTOR) 20 mg tabletIndications :Hyperlipidemia, unspecified hyperlipidemia type Take 2 Tablets (40 mg) by mouth at bedtime. 180 Tablet 3 025 Active albuterol HFA (PRO-AIR; VENTOLIN; PROVENTIL) 90 mcg/actuation inhalerIndication s:Acute cough Inhale 1-2 Puffs by mouth every 4 hours while awake. Use as directed for 5 days, then as needed for cough and wheezing. 1 Each Active benzonatate (TESSALON) 200 mg capsuleIndication s:Bronchitis,Acut e cough Take 1 Capsule (200 mg) by mouth 3 times daily if needed for Cough. 30 Capsule Active predniSONE (DELTASONE) 10 mg tabletIndications :Bronchitis,Acute cough Take 1 Tablet (10 mg) by mouth once daily with a meal. Take 3 tablets (30 mg) in the morning with food for 5 days. 15 Tablet Active medication order composerIndicatio ns:Irritable bowel syndrome with diarrhea Betaine Hcl plus pepsin-1 capsule twice daily with food Orthomolecular Orthobiotic (20 billion CFUs with saccharomyces boulardii): 1 capsule daily GI Revive weaning off/reducing as able: *Taxizu for [employer] GI-Revive Powder: Mix 1 tablespoon in water or other liquid of choice and drink once daily 1 fiber capsule daily at bedtime Active valsartan (DIOVAN) 160 mg tabletIndications :Essential hypertension TAKE 1 TABLET(160 MG) BY MOUTH DAILY 60 Tablet Active cephalexin 500 mg capsuleIndication s:UTI symptoms Take 1 Capsule (500 mg) by mouth two times daily for 7 days. 14 Capsule 2024 Active valsartan (DIOVAN) 160 mg tabletIndications :Essential hypertension TAKE 1 TABLET(160 MG) BY MOUTH DAILY 90 Tablet 2024 Discontinued Active Problems Problem Noted Date Diagnosed Date Heart failure 07/14/2025 Overview (07/14/2025): AI Summary: Grade 1 left ventricular diastolic dysfunction with normal LA filling pressure was noted on echocardiogram on 11/26/2022 and 01/03/2023. Grade I diastolic dysfunction was also noted on ECHO in 03/2025, and was added to the patient's active problem list on 03/08/2025. There was no sign of heart failure on 04/01/2023. 03/07/25: LVEF 79 % 06/03/25: BP 141/88 06/03/25: HR 68 /min On meds: valsartan Recent encounter dx: 03/29/25: Appointment - [facility] 03/21/25: Appointment - [facility] 09/23/24: Appointment - [facility] Recent notes: 07/07/25: Progress Notes - VIRTUAL VISIT - VIRTUAL VISIT by Kizzy Cedillo NP ... [+] ? Grade I diastolic dysfunction I51.89 03/29/25: Nursing Note - Consult - Consult by Kenyetta Lai LPN ... [+] Mitral regurgitation and aortic stenosis noted on ECHO 03/2025, and Grade I diastolic dysfunction Noted on echo 03/[address] Hutchins 03/29/25: Progress Notes by Rick Bazzi MD ... [-] Grade I diastolic dysfunction ... [+] ? Grade I diastolic dysfunction 03/08/2025 03/21/25: Progress Notes by Ciara Hutchins DO ... 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 The patient was seen for high-risk breast cancer surveillance and atypical ductal hyperplasia was mentioned as a risk factor for future breast cancer. The patient had no breast cancer on tissue removed for atypia. 09/23/24: Alb 4.4 g/dL 04/01/24: WBC 8.3 thou/cu mm 04/01/24: Hgb 14.3 g/dL 09/23/24: K 4.5 mmol/L 04/01/24: Plt 329 thou/cu mm 09/23/24: AST 21 U/L 09/23/24: ALT 17 U/L 09/23/24: Total Protein 6.8 g/dL 09/23/24: Ca 9.7 mg/dL 04/01/24: Lipase 50.4 IU/L 01/29/18: Amylase 67 [IU]/L 09/23/24: Cr 0.88 mg/dL 09/23/24: GFR 68 mL/min/1.73m2 On meds: predniSONE Recent notes: 02/01/25: Progress Notes - VIRTUAL VISIT by Radha Arevalo NP ... [+] ? SCC (squamous cell carcinoma), leg, right 07/202006/15/24: Progress Notes - HISTORY OF PRESENT ILLNESS by HANS Siu ... [-] Dahlia Oh is a 78 y.o. female here today for high-risk breast cancer surveillance. ... [-] SEVERITY: Atypical ductal hyperplasia will serve as a risk factor for future breast cancer at about a 1% per year absolute risk, approaching 30% at 25 years of follow up per the Chris et al data. ... [-] Patient is a 78 y.o. female with a benign high-risk breast cancer surveillance exam. 05/28/23: Operative/Procedure Report - [facility], EXCISION LT PROXIMAL ULNAR DORSAL FOREARM, 05/28/2023 ... [-] Basal cell carcinoma Squamous cell carcinoma Other: Cyst in nose ... [-] Family History of Melanoma ... [-] Do you have a family history of Melanoma?: No ... [-] Expectations: Myers's Disease is squamous cell carcinoma in situ, a superficial non-melanoma skin cancer. 05/17/23: Anesthesia Preprocedure Evaluation by Pinky Carver MD ... [+] 07/2020: SCC (squamous cell carcinoma), leg, right 09/03/21: Progress Notes - Medicare Wellness Visit by Hayley Maxwell MD ... [+] She is receiving radiation therapy for squamous cell carcinoma on her left arm. At increased risk for cardiovascular disease Overview (03/29/2025): Started on rosuvastatin 03/2025 Mitral regurgitation and aortic stenosis 025 Overview (03/29/2025): noted on ECHO 03/2025. Saw cardiology, Dr. Bazzi, who recommended repeat in 3-5 years. Grade I diastolic dysfunction 03/08/2025 Overview (03/08/2025): Noted on echo 03/2025 Prediabetes 03/11/2024 Epigastric pain 07/21/2023 Atypical ductal hyperplasia of breast 07/21/2023 Depression, recurrent 02/25/2023 Renal cyst, right 09/04/2021 Overview (02/24/2023): Noted on CT scan and ultrasound Positive JOSETTE (antinuclear antibody) 09/03/2021 PMR (polymyalgia rheumatica) 12/15/2020 Overview (09/03/2021): Diagnosed in [place]. C-reactive protein 20.7. ACP (advance care planning) 06/05/2020 Overview (06/05/2020): Health Care Directive scanned to medical record. See document dated 03/31/2020. Anxiety 02/22/2014 Overview (07/22/2023): Working with counselor Osteopenia 11/15/2013 Overview (09/09/2019): 02/2019: DXA scan-lowest T-score -1.8, FRAX score low Hypertension Postmenopausal atrophic vaginitis Hyperlipidemia Overview (12/26/2006): high HDL HH (hiatus hernia) Resolved Problems Problem Noted Date Diagnosed Date Resolved Date Acute appendicitis 05/17/2023 3 Acute atopic conjunctivitis 12/28/2006 08/22/2015 Displacement of lumbar inter vertebral disc without myelopathy 12/26/2006 Reflux esophagitis 7 Esophageal reflux 08/22/2015 Overview (02/03/2008): Upper GI endoscopy negative 12/17/07 Neg H.Pylori Encounters Date Type Department Care Team Description 08/25/2025 Travel 08/23/2025 7:30 AM SURGICAL AIDES TEACHER Orders Only [facility] [address] [place] [address] Lab, Pooja <No scans attached> 08/23/2025 Travel 08/20/2025 9:20 AM SURGICAL AIDES TEACHER Telemedicine [facility] [address] [place] [phone] Stu Hannon MD Telehealth (No taken. CC: UTI?) 08/20/2025 Travel 08/09/2025 Refill [facility] [address] [place] [address] Ciara Hutchins, Refill Request (Valsartan) 07/14/2025 1:15 PM CDT Telemedicine [facility] [address] [place] [phone] Radha Arevalo NP Telehealth; Follow Up 07/09/2025 Travel 07/07/2025 11:20 AM CDT Telemedicine [facility] [address] [place] [phone] Kizzy Cedillo NP Telehealth (Cough/) 07/07/2025 Travel 06/28/2025 Telephone [facility] - [address] [place] [phone] Rick Bazzi MD Results (Lipid panel--LDL 80) 06/27/2025 7:30 AM CDT Orders Only [address] [phone] Tom, Pooja <No scans attached> 06/27/2025 Travel 06/23/2025 2:49 PM CDT - 06/23/2025 11:59 PM CDT Hospital Encounter [facility] [address] [place] [address] Encounter for screening mammogram for malignant neoplasm of breast 06/23/2025 Travel 06/03/2025 4:00 PM CDT Ancillary Procedure [address] [phone] 06/03/2025 2:35 PM CDT Office Visit [facility] [address] [place] [phone] Aurora Mota, STREET ENGINEER Cough 06/03/2025 Travel 05/30/[address] [place] [address] iCara Hutchins DO Refill Request (Benzonatate) from Last 3 Months Immunizations Immunization Administration Dates Next Due COVID-19 vaccine (Moderna 100mcg/0.5mL) PF, MDV 07/29/2021,01/03/2021,12/06/2020 DTaP 11/11/2008 Influenza A (H1N1), Inactivated 09/19/2009 Influenza Virus, Unspecified 06/06/2020,07/19/20 15,10/12/2004 Influenza, High-dose Inactivated 024,06/06/2021,06/15/2019,06/05,06/12/2017,07/24/2016,07/23/2016 Influenza, High-dose Quadriv alent Inactivated 07/04/2023 Influenza, IIV3 (Age 6-35 mos) 06/23/2020 Influenza, IIV3 (Age >=3 years) 07/01/20 11,07/06/2010,07/20/2007,08/06,10/12/2004 Influenza, IIV4 07/19/2015,07/12/2013 Influenza, Inactivated AIIV4 (Age 65+ Years) Preserv Free 06/19/2022 Influenza, Inactivated IIV3 (Age 65+ Years) Preserv Free 06/12/2017 Pneumococcal Poly,23-Valent (Pneumovax) 09/30/2012 Pneumococcal conj 13-Valent (Prevnar 13) 10/04/2014 RSV, Bivalent Vaccine Recons tituted (Abrysvo 120MCG/0.5mL) 07/05/2024 Td (Age >=7 Years) 09/08/2019 Tdap 11/11/2008 [...] Answer Date Recorded PHQ-2 TOTAL SCORE 0 03/21/2025 Social Connections Answer Date Recorded Do you often feel lonely or isolated from those around you? 0 04/19/2024 Financial Resource Strain Answer Date R ecorded Difficulty of Paying Living Expenses 3 04/19/2024 Difficulty of Paying Living Expenses Not on file 04/19/2024 Food Insecurity Answer Date Recorded Do you worry your food will run out before you are able to buy more? 1 04/19/2024 Transportation Needs Answer Date Record ed Does lack of transportation keep you from medica l appointments? 1 04/19/2024 Does lack of transportation keep you from work, meetings or getting things that you need? 1 04/19/2024 Housing Stability Answer Date Recorded What is your housing situation today? 1 04/19/2024 Interpersonal Safety Answer Date Record ed Are you being hit, kicked, p ushed or yelled at (see row info)? No 04/01/2024 Interpersonal Safety Abuse 12 - 18 Not on file 04/01/2024 Interpersonal Safety Ambulatory Vulnerability No t on file 04/01/2024 Utilities Answer Date Recorded Do you have trouble paying f or utilities (for example, heat, electricity, water, phone)? 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 Not on file Not on file Not on file Obstetrics History Para Term AB IAB SAB Ectopic Multiple Livin g Live Births 3 3 2 Date Outcome GA Total Labor Labor/2nd/3rd Weight Sex Type Anes PTL Cyndi A1 A5 Name Clin Para Para Para Last Filed Vital Signs Vital Sign Reading Time Taken Comments Blood Pressure 141/88 06/03/2025 2:55 PM CDT Pulse 68 06/03/2025 3:52 PM CDT Temperature 36.6 C (97.9 F) 06/03/2025 2:55 PM CDT Respiratory Rate 20 06/03/2025 2:55 PM CDT Oxygen Saturation 96% 06/03/2025 3:52 PM CDT Inhaled Oxygen Concentration - - Weight 78.2 kg (172 lb 6.4 oz) 03/29/2025 11:25 AM CDT Height 161.3 cm (5' 3.5) 09/23/2024 2:15 PM SURGICAL AIDES TEACHER Body Mass Index 30.06 09/23/2024 2:15 PM SURGICAL AIDES TEACHER Plan of Treatment Upcoming Encounters Date Type Department Care Team (Late st Contact Info) Description 09/16/2025 2:20 PM SURGICAL AIDES TEACHER Office Visit [facility] [address] [place] [phone] Ciara Hutchins DO [address] [place] [address] Health Maintenance Due Date Last Done Comments Influenza Vaccine (#1) 2025 , 06/19/2022, 06/06/2021, Additional history exists BMI (ht and wt on same day) for age 18+ 09/23/2025 09/23/2024, 06/15/2024, 03/24/2024, Additional history exists Medicare Wellness for age 65+ 09/24/2025 09/23/2024, 09/10/2023, 09/04/2022, Additional history exists Depression screening for age 12+ 03/21/2026 03/21/2025, 09/23/2024, 06/23/2024, Additional history exists Tetanus booster 09/08/2029 09/08/2019, 11/11/2008 Pneumococcal series for age 50+ Completed 10/04/2014, 09/30/2012 Zoster (shingles) series for age 50+ Completed 11/26/2018, 09/08/2018, 08/24/2018, Additional history exists DEXA/DXA scan for age 65+ Completed 2018, 03/26/2011, 07/01/2007 Hepatitis C screening for age 18-79 Completed 09/10/2019 RSV vaccine for adults or Completed 07/05/2024 Hepatitis B series for 19+ Aged Out N o longer eligible based on patient's age to complete this topic Procedures Procedure Name Priority Date/Time Associated Diagnosis Comments LIPID PANEL W REFLEX MEASURED LDL Routine 08/23/2025 7:36 AM SURGICAL AIDES TEACHER Hyperlipidemia, unspecified hyperlipidemia type LIPID PANEL W REFLEX MEASURED LDL Routine 06/27/2025 7:28 AM CDT Hyperlipidemia, unspecified hyperlipidemia type XR MAMMO CLAUDY BILAT SCREEN Routine 06/23/2025 3:13 PM CDT Encounter for screening mammogram for malignant neoplasm of breast XR CHEST 2 VIEWS PA AND LATERAL STAT 06/03/2025 4:07 PM CDT Acute cough ANTI HCV Routine 09/10/2019 7:51 AM SURGICAL AIDES TEACHER Need for hepatitis C screening test XR DXA BONE DENSITY 2 SITES AXIAL Routine 02/08/2019 1:45 PM CDT Osteopenia, unspecified location from Last 3 Months or Most Recently Relevant to Health Maintenance Results * LIPID PANEL W REFLEX MEASURED LDL (08/23/2025 7:36 AM SURGICAL AIDES TEACHER) Only the most recent of2 resultswithin the time period is included. CHOLESTEROL, TOTAL 159 <200 mg/dL 08/24/2025 6:17 AM SURGICAL AIDES TEACHER [facility] TRIGLYCERIDES 93 <150 mg/dL 08/24/2025 6:17 AM SURGICAL AIDES TEACHER [facility] HDL CHOLESTEROL 76 > OR = 50 mg/dL 08/24/2025 6:17 AM SURGICAL AIDES TEACHER [facility] NON HDL CHOLESTEROL 83 <130 mg/dL (calc) 08/24/2025 6:17 AM SURGICAL AIDES TEACHER [facility] Comment: For patients with diabetes plus 1 major ASCVD risk factor, treating to a non-HDL-C goal of <100 mg/dL (LDL-C of <70 mg/dL) is considered a therapeutic option. CHOL/HDLC RATIO 2.1 <5.0 (calc) 08/24/2025 6:17 AM SURGICAL AIDES TEACHER [facility] LDL-CHOLESTEROL 65 mg/dL (calc) 08/24/2025 6:17 AM SURGICAL AIDES TEACHER [facility] Comment: Reference range: <100 Desirable range <100 mg/dL for primary prevention; <70 mg/dL for patients with CHD or diabetic patients with > or = 2 CHD risk factors. LDL-C is now calculated using the Deja calculation, which is a validated novel method providing better accuracy than the Friedewald equation in the estimation of LDL-C. Luis Antonio BARNDON et al. NILTON. 2013;310(19): 1079-4585 (http://education.CreatorBox.Concil[employer] Networks/faq/BRG160) Blood BLOOD SPECIMEN / Unknown [facility] / Unknown 08/23/2025 7:36 AM SURGICAL AIDES TEACHER 08/23/2025 7:36 AM SURGICAL AIDES TEACHER us Rick Bazzi MD CHEMISTRY Final Result [employer] [facility] [address] [place] [address], * XR MAMMO CLAUDY BILAT SCREEN (06/23/2025 3:13 PM CDT) Anatomical Region Laterality Modality BREASTS, Breast Left, Breast Right Bilateral Mammography Impressions 06/24/2025 7:03 AM CDT There is no radiographic evidence for malignancy. Recommend annual mammograms. MAMMOGRAM ASSESSMENT: ACR 2 Benign PATIENTS: You will also receive a letter with your examination results in an easy to read format. If you have questions about your results, please contact your referring provider. Narrative 06/24/2025 7:03 AM CDT For Patients: As a result of the 21st Century Cures Act, medical imaging exams and procedure reports are released immediately into your electronic medical record. You may view this report before your referring provider. If you have questions, please contact your health care provider. XR MAMMO CLAUDY BILAT SCREEN [[id number]] CLINICAL HISTORY: This is an asymptomatic 79 y.o. patient. INDICATION FOR EXAM: Mammogram Screening. TECHNIQUE: CC and MLO views were obtained. This study was evaluated with the assistance of Computer-Aided Detection. Breast Tomosynthesis was used in interpretation. COMPARISON FILMS: Yes 06/15/24 [facility] FINDINGS: There are scattered areas of fibroglandular density. No suspicious masses or microcalcifications. There are post surgical changes of right breast. Ciara Hutchins DO MAMMO Final Result * XR CHEST 2 VIEWS PA AND LATERAL (06/03/2025 4:07 PM CDT) Anatomical Region Laterality Modality CHEST, THORAX, Lung, HEART Compu bacilio Radiography 06/03/2025 4:22 PM CDT Narrative 06/03/2025 4:22 PM CDT For Patients: As a result of the Cures Act, medical imaging exams and procedure reports are released immediately into your electronic medical record. You may view this report before your referring provider. If you have questions, please contact your health care provider. Indication: Acute cough Comparison: Two-view chest April 01, 2024 Technique: PA and lateral views of the chest Findings: There is no focal consolidation, effusion, or pneumothorax. The cardiomediastinal silhouette is within normal limits. The bony thorax is grossly intact. Impression: No acute cardiopulmonary abnormality. Dictated by Alna Crain MD @ 06/03/2025 4:22:47 PM (Electronically Signed) Procedure Note Alan Crain MD - 06/03/2025 For Patients: As a result of the Cures Act, medical imagingexams and procedure reports are released immediately into your electronicmedical record. You may view this report before your referring provider.If you have questions, please contact your health care provider. Indication: Acute cough Comparison: Two-view chest April 01, 2024 Technique: PA and lateral views of the chest Findings: There is no focal consolidation, effusion, or pneumothorax. The cardiomediastinal silhouette is within normal limits. The bony thorax is grossly intact. Impression: No acute cardiopulmonary abnormality. Dictated by Alan Crain MD @ 06/03/2025 4:22:47 PM (Electronically Signed) Aurora Mota NP GENERAL IMAGING Final Result * ANTI HCV (09/10/2019 7:51 AM SURGICAL AIDES TEACHER) HEPATITIS C ANTIBODY Non-React taylor Non-React taylor 09/10/2019 5:38 PM SURGICAL AIDES TEACHER [facility] Comment:Antibodies to HCV no t detected; does not exclude the possibility of exposure to HCV. Blood BLOOD SPECIMEN / Unknown Venipuncture / Unknown 09/10/2019 7:51 AM SURGICAL AIDES TEACHER 09/10/2019 7:53 AM SURGICAL AIDES TEACHER Hayley Maxwell MD SEND OUTS Final Res ult [facility] [address] [place] [address], * (ABNORMAL) XR DXA BONE DENSITY 2 SITES AXIAL (02/08/2019 1:45 PM CDT) Anatomical Region Laterality Modality Spine, HIPS, HIPL, HIPR Bone Den sitometry Narrative 02/10/2019 3:31 PM CDT Please see scanned document for results of this study. Hayley Maxwell MD DEXA Final Res ult from Last 3 Months or Most Recently Relevant to Health Maintenance Insurance [place] HB ONLY [place] MR PB ONLY MEDICARE PART B HB ONLY MEDICARE PART A HB ONLY [place] Advance Directives Documents on File Type Date Recorded Patient Foreign Exchange Trader Expl anation Healthcare Directive 03/31/2020 020 Treatment [...] Comments Code Status Discussion: Discussed Care Teams Spud Driller Relationship Specialty Start Date End Date CuongCiara DO [address] [place] [address] PCP - General Internal Medicine 03/24/24 Elida Tompkins MD [facility] [address] [place] [address]. [address] [place] [id number] Dermatology 08/07/16
== END 2025-08-25 20:49 | disposition left against medical advice (07) ==
LOC: ED 20:44
PROVIDERS: Emergency Provider Student in an Organized Health Care Education/Training Program; PCP Internal Medicine
DX: Z53.21 Procedure and treatment not carried out due to patient leaving prior to being seen by health care provider (principal)